=== PATIENT | male | born 1945 | race Caucasian/White ===

== ENCOUNTER → 2018-05-06 15:35 | Outpatient (CLI) | payer OTHER, SELFPAY ==
--- NOTE | 2018-05-06 | DI.CT.S_ITS ---
PROCEDURE: CT UE LT WO CON INDICATIONS: CLOSED FRACTURE OF LEFT HUMERUS TECHNIQUE: Noncontrast 1-1.5 mm thick sections acquired from the acromioclavicular joint to the inferior scapula, with coronal and sagittal reformatting. COMPARISON: [facility] Outside Film, RG, HUMERUS MIN 2VW (LT), 04/09/2018, 18:27. [facility], CR, XR SHOULDER 2+ VIEWS LEFT, 04/24/2018, 13:40. FINDINGS: Image quality: Excellent. Bones: There is an impacted humeral head slight neck fracture on the left, as seen during plain film imaging 04/24/18. This also was present during plain film imaging from [facility] 04/09/18. The degree of traumatic impaction along the fracture planes depressing the humeral head articular surface from anatomic position is equivalent to that present 04/09/18. A glenoid or scapular fracture is not found. Callous bridges a number of the osseous margins at the proximal humerus. Soft tissues: No posttraumatic hematoma is found. IMPRESSION: Moderately comminuted impacted intra-articular fracture involving the left humeral head/neck area, also present to the same degree of malalignment from the 04/09/[address] [facility]. No new traumatic injury is found. Early callus bridging the fracture planes appears present. No fracture of the glenoid/scapula/acromium or distal clavicle is seen. No fracture of the distal humerus is identified. Dictated by: Carlos Peters M.D. on 05/06/2018 at 16:17 Approved by: Carlos Peters M.D. on 05/06/2018 at 16:21
== END ==
PROVIDERS: Family Provider Family Medicine Adult Medicine; Visit Provider Physician Assistant Medical
DX: S42.292A Other displaced fracture of upper end of left humerus, initial encounter for closed fracture (principal)
CPT/HCPCS: 73200